=== PATIENT | female | born 1960 | race Caucasian/White ===

== ENCOUNTER 2016-09-28 11:23 | Emergency (ER) | payer OTHER ==
[~2016-09-28] VITALS: Ht 172.7 cm; Wt 50.0 kg
[~2016-09-28 11:23] MED LIST: BUPR300T PO; ENOX40P SQ; FLUO40CA PO; LORA1TAB PO; OXYC1SOL5 PO; SPIRCAP INH; Z.0.COMMODE-3:1; Z.0.WALKERFRONT
[2016-09-28 11:29] VITALS: BP 171/99; PULSE 102; RESP 24; TEMP 97.7; O2SAT 98
[2016-09-28 13:57] VITALS: O2SAT 100
[2016-09-28 14:03] VITALS: BP 170/74; PULSE 90; RESP 22; O2SAT 100
--- NOTE | 2016-09-28 14:04 | PD ---
HPI Chief Complaint: Chest Pain Time Seen by Provider: 14:04 Travel History International Travel<30 days: No Contact w/Intl Traveler<30days: No Traveled to known affect area: No History of Present Illness HPI 56-year-old female with PMH of COPD, depression, chronic back pain presents to ED for evaluation of "one week or 2-3 days" history of left-sided chest pain, shortness of breath, intermittent nausea, vomiting and diarrhea. Patient states that the chest pain is constant, worsened by lying on or touching her left breast. Patient also endorses increased urinary urgency,"dark urine" and right sided back pain. She states this back pain is different than her normal back pain of the midline. Denies fever, chills, sinus congestion, cough, sore throat , abdominal pain, weakness of the extremities. She states that she has been out of her Prozac and bupropion for "about a month." Patient is followed by Dr. Cote. [facility] Past Medical History Arthritis: Yes Cancer: No Cardiovascular Problems: No High Cholesterol: Yes Diminished Hearing: No Endocrine: No Genitourinary: Yes (OVERACTIVE BLADDER) Hepatitis: No Hiatal Hernia: No Immune Disorder: No Musculoskeletal: Yes (RIGHT HIP ARHTRITIS, LUMBAR DDD, ARTHRITIS BACK AND LEFT SHOULDER) Neurologic: No Psychiatric: Yes (CLINICAL DEPRESSION/ANXIETY) Reproductive: No Respiratory: Yes (COPD) Past Surgical History Abdominal Surgery: No AICD: No Body Medical Devices: NONE Cardiac Surgery: No Ear Surgery: No Endocrine Surgery: No Eye Surgery: No Genitourinary Surgery: No Gynecologic Surgery: Yes (TOTAL HYSTERECTOMY) Hysterectomy: Yes (1996) Joint Replacement: No Oral Surgery: No Pacemaker: No Thoracic Surgery: No Other Surgery: Yes Social History Alcohol Use: Yes (3-4 /WEEK) Tobacco Use: Yes (1 1/2 PPD X 30 YRS.) Substance Use: Yes (OCCASIONAL MARIJUNNA) Allergies-Medications (Allergen,Severity, Reaction): Coded Allergies: No Known Allergies (Verified , 01/20/16) Reported Meds & Prescriptions Reported Meds & Active Scripts Active Reported Hydrocodone-Acetaminophen 10-325 mg Tab 1 Tab PO Q4H PRN Spiriva Handihaler (Tiotropium Inh) 18 Mcg Cap 18 Mcg INH DAILY 1 capsule = 18 mcg Prozac (Fluoxetine HCl) 10 Mg Cap 10 Mg PO DAILY Bupropion HCl 75 Mg Tab 75 Mg PO BID Review of Systems Except as stated in HPI: all other systems reviewed are Neg Physical Exam Narrative GENERAL: Well-nourished, well-developed, tearful white female in no acute distress. SKIN: Warm and dry. 1-2 cm tender, mobile, rubbery mass in the upper lateral quadrant of the left breast. Large comedone of the right lower back. No signs of infection. EYES: No scleral icterus. No injection or drainage. PERRLA. EOMI. ENT: Pearly allen tympanic membranes bilaterally. Nasal mucosa is moist. Oropharynx without erythema, edema or exudate. NECK: Supple, trachea midline. No JVD or lymphadenopathy. CARDIOVASCULAR: Regular rate and rhythm without murmurs, gallops, or rubs. No carotid bruits. 2+ DP and radial pulses bilaterally. RESPIRATORY: Breath sounds clear and equal bilaterally. No accessory muscle use. GASTROINTESTINAL: Abdomen soft, non-tender, nondistended. + Bowel sounds MUSCULOSKELETAL: No cyanosis, or edema. Patient is ambulatory and moves the extremities spontaneously. BACK: Nontender without obvious deformity. No CVA tenderness. Data Data Last Documented VS Vital Signs Date Time Temp Pulse Resp B/P Pulse Ox O2 Delivery O2 Flow Rate FiO2 09/28/16 15:00 91 16 157/68 98 Room Air 09/28/16 11:29 97.7 Orders Electrocardiogram (09/28/16 ) Complete Blood Count With Diff (09/28/16 14:04) Comprehensive Metabolic Panel (09/28/16 14:04) D-Dimer (09/28/16 14:04) Act Partial Throm Time (Ptt) (09/28/16 14:04) Prothrombin Time / Inr (Pt) (09/28/16 14:04) Ckmb (Isoenzyme) Profile (09/28/16 14:04) Troponin I (09/28/16 14:04) Urinalysis - C+S If Indicated (09/28/16 14:04) Iv Access Insert/Monitor (09/28/16 14:04) Ecg Monitoring (09/28/16 14:04) Oximetry (09/28/16 14:04) Chest, Single Ap (09/28/16 14:04) Sodium Chloride 0.9% Flush (Ns Flush) (3/28/17 14:15) Lipase (09/28/16 14:04) Sodium Chlor 0.9% 1000 Ml Inj (Ns 1000 M (09/28/16 14:15) Ondansetron Inj (Zofran Inj) (09/28/16 14:15) B-Type Natriuretic Peptide (09/28/16 14:04) Ct Pulmonary Angiogram (09/28/16 15:23) Potassium Chloride (Kcl) (09/28/16 15:45) Acetamin-Hydrocod 325-10 Mg ([place] 10-32 (09/28/16 15:45) Iohexol 350 Inj (Omnipaque 350 Inj) (09/28/16 16:18) Labs Laboratory Tests Test 09/28/16 09/28/16 14:10 15:15 White Blood Count 13.1 TH/MM3 Red Blood Count 4.42 MIL/MM3 Hemoglobin 14.5 GM/DL Hematocrit 43.0 % Mean Corpuscular Volume 97.3 FL Mean Corpuscular Hemoglobin 32.8 PG Mean Corpuscular Hemoglobin 33.7 % Concent Red Cell Distribution Width 13.0 % Platelet Count 348 TH/MM3 Mean Platelet Volume 7.1 FL Neutrophils (%) (Auto) 78.1 % Lymphocytes (%) (Auto) 14.3 % Monocytes (%) (Auto) 6.0 % Eosinophils (%) (Auto) 0.9 % Basophils (%) (Auto) 0.7 % Neutrophils # (Auto) 10.2 TH/MM3 Lymphocytes # (Auto) 1.9 TH/MM3 Monocytes # (Auto) 0.8 TH/MM3 Eosinophils # (Auto) 0.1 TH/MM3 Basophils # (Auto) 0.1 TH/MM3 CBC Comment DIFF FINAL Differential Comment Prothrombin Time 10.4 SEC Prothromb Time International 0.9 RATIO Ratio Activated Partial 26.9 SEC Thromboplast Time D-Dimer Quantitative (PE/DVT) 1.68 MG/L FEU Sodium Level 139 MEQ/L Potassium Level 3.1 MEQ/L Chloride Level 107 MEQ/L Carbon Dioxide Level 20.6 MEQ/L Anion Gap 11 MEQ/L Blood Urea Nitrogen 3 MG/DL Creatinine 0.68 MG/DL Estimat Glomerular Filtration 90 ML/MIN Rate Random Glucose 107 MG/DL Calcium Level 9.1 MG/DL Total Bilirubin 0.6 MG/DL Aspartate Amino Transf 11 U/L (AST/SGOT) Alanine Aminotransferase 16 U/L (ALT/SGPT) Alkaline Phosphatase 88 U/L Total Creatine Kinase 37 U/L Troponin I LESS THAN 0.02 NG/ML B-Type Natriuretic Peptide 31 PG/ML Total Protein 7.7 GM/DL Albumin 3.8 GM/DL Lipase 233 U/L Urine Color LIGHT-YELLOW Urine Turbidity CLEAR Urine pH 6.0 Urine Specific [place] 1.004 Urine Protein NEG mg/dL Urine Glucose (UA) NEG mg/dL Urine Ketones TRACE mg/dL Urine Occult Blood NEG Urine Nitrite NEG Urine Bilirubin NEG Urine Urobilinogen LESS THAN 2.0 MG/DL Urine Leukocyte Esterase NEG Urine RBC 1 /hpf Urine WBC LESS THAN 1 /hpf Urine Squamous Epithelial 1 /hpf Cells Urine Bacteria RARE /hpf Microscopic Urinalysis Comment CULT NOT INDICATED MDM Medical Decision Making Medical Screen Exam Complete: Yes Emergency Medical Condition: Yes Differential Diagnosis COPD exacerbation versus anxiety versus chest pain versus ACS versus breast mass versus UTI versus gastroenteritis versus other Narrative Course 56-year-old female with PMH of COPD, depression, chronic back pain presents to ED for evaluation of "one week or 2-3 days" history of left-sided chest pain, shortness of breath, intermittent nausea, vomiting and diarrhea. Patient states that the chest pain is constant, worsened by lying on or touching her left breast. Patient also endorses increased urinary urgency,"dark urine" and right sided back pain. Denies fever, chills, sinus congestion, cough, sore throat, abdominal pain, weakness of the extremities. She states that she has been out of Prozac and bupropion for "about a month." PCP Dr. Cote. Vitals reviewed. O2 saturation 100% on room air. Physical exam reveals an anxious and tearful white female in no acute distress. There is a 1-2 cm mobile, tender, rubbery nodule in the upper lateral quadrant of the left breast, suspicious for lymph node. Regular rate and rhythm without appreciable thumb/R/G. Equal pulses in the extremities. Chest CTAB. Abdomen soft, nontender. No CVA tenderness. IV was established. Patient was administered a 1 L bolus of normal saline, 4 mg Zofran IV. CBC: WBC 13.1. CMP: K 3.1 BNP: 31 Lipase: 233 INR: 0.9 UA: No culture indicated Cardiac enzymes: CXR: No acute disease per radiology read. EKG: Rate 89, sinus rhythm. Normal intervals. Normal axis. No ST elevations or depressions. Reviewed by Dr. Brock. D-dimer: 1.68 CTA: No evidence of PE. [id number] pulmonary emphysema. Results per radiology read. Patient was administered 40 mEq potassium by mouth. Patient also requests a dose of her daily pain medication and was administered 10 mg Lortab by mouth. Patient states last mammogram was "a few years ago." Discussed the results of the evaluation with the patient. Patient is instructed to follow-up with Dr. Cote, schedule mammogram GR[facility]. She indicated understanding of instructions and agrees to the plan of care. She stable and discharged home. Diagnosis Primary Impression: Left breast mass Additional Impression: Hypokalemia Referrals: Austen Cote MD PhD Patient Instructions: Breast Mass (ED), General Instructions Additional Instructions: Rest, hydrate. Resume all at home medication as previously prescribed. Follow-up for your mammogram as discussed. Return to the ED for any urgent or emergent medical condition. Disposition: 01 DISCHARGE HOME Condition: Stable Nancy Munoz Sep 28, 2016 14:04
[2016-09-28] MEDS ORDERED: FLUO-1 PO (14:09)
[2016-09-28] MEDS ORDERED: HYDR-3583 PO (14:09)
[2016-09-28] MEDS ORDERED: BUPR75TA PO (14:09)
[2016-09-28] MEDS ORDERED: SPIRCAP INH (14:09)
[2016-09-28] MEDS ORDERED: SODIUM CHLORIDE 0.9% FLUSH 10 ML FLUSH IVF PRN (14:15)
[2016-09-28] MEDS ORDERED: SODIUM CHLOR 0.9% 1000 ML INJ 1,000 ML IV ONE (14:15)
[2016-09-28] MEDS ORDERED: ONDANSETRON HCL 4 MG/2 ML VIAL IV PUSH ONE (14:15)
[2016-09-28 14:30] LABS: AUTOMATED NEUTROPHIL # 10.2 TH/MM3 (1.8-7.7); BASOPHIL # 0.1 TH/MM3 (0-0.2); BASOPHIL % 0.7 % (0.0-2.0); EOSINOPHIL # 0.1 TH/MM3 (0-0.4); EOSINOPHIL % 0.9 % (0.0-4.0); HEMO FLAGS DIFF FINAL; LYMPH % 14.3 % (9.0-44.0); LYMPHOCYTE # 1.9 TH/MM3 (1.0-4.8); MEAN CELL VOLUME 97.3 FL (80.0-100.0); MEAN CORPUSCULAR HEMOGLOBIN 32.8 PG (27.0-34.0); MEAN CORPUSCULAR HGB CONC 33.7 % (32.0-36.0); NEUT % 78.1 % (16.0-70.0); PLATELET COUNT 348 TH/MM3 (150-450); RED BLOOD COUNT 4.42 MIL/MM3 (4.00-5.30); WHITE BLOOD COUNT 13.1 TH/MM3 (4.0-11.0)
--- NOTE | 2016-09-28 14:42 | RADRPT ---
EXAM DATE/TIME: 09/28/2016 14:23 [facility] COMPARISON: No previous studies available for comparison. INDICATIONS : Patient has had chest pain and been short of breath since this morning. MEDICAL HISTORY : None. SURGICAL HISTORY : None. ENCOUNTER: Initial ACUITY: 1 day PAIN SCORE: 8/10 LOCATION: Left chest FINDINGS: A single view of the chest demonstrates the lungs to be symmetrically aerated without evidence of mas s, infiltrate or effusion. The cardiomediastinal contours are unremarkable. Osseous structures are intact. CONCLUSION: No acute disease. Migel Naylor Jr., MD on September 28, 2016 at 14:40 Board Certified Radiologist. This report was verified electronically.
[2016-09-28 14:47] LABS: ALT (GPT) 16 U/L (10-53); ANION GAP 11 MEQ/L (5-15); AST (GOT) 11 U/L (15-37); BICARBONATE 20.6 MEQ/L (21.0-32.0); BLOOD UREA NITROGEN 3 MG/DL (7-18); CHLORIDE 107 MEQ/L (98-107); GLOMERULAR FILTRATION RATE 90 ML/MIN (>89); POTASSIUM 3.1 MEQ/L (3.5-5.1); SODIUM (NA) 139 MEQ/L (136-145)
[2016-09-28 14:50] LABS: ALKALINE PHOSPHATASE 88 U/L (45-117); TOTAL BILIRUBIN ADULT 0.6 MG/DL (0.2-1.0)
[2016-09-28 14:53] LABS: APTT (PATIENT) 26.9 SEC (24.3-30.1); INTERNATIONAL NORMALIZED RATIO 0.9 RATIO; PROTHROMBIN TIME - PATIENT 10.4 SEC (9.8-11.6)
[2016-09-28 14:54] LABS: CREATINE KINASE 37 U/L (26-192)
[2016-09-28 15:00] VITALS: BP 157/68; PULSE 91; RESP 16; O2SAT 98
[2016-09-28 15:34] LABS: BACTERIA, URINE RARE /hpf; BLOOD, URINE NEG (NEG); COMMENT (UR) CULT NOT INDICATED; CULTURE IF INDICATED CULT NOT INDICATED; GLUCOSE,URINE NEG (NEG); KETONE, URINE TRACE mg/dL (NEG); NITRITE,URINE NEG (NEG); SQUAMOUS EPITHELIAL CELL URINE 1 /hpf (0-5); URINE COLOR LIGHT-YELLOW (YELLW/STRAW)
[2016-09-28] MEDS ORDERED: POTASSIUM CHLORIDE 20 MEQ CONTROLLED RELEASE TAB PO ONE (15:45)
[2016-09-28] MEDS ORDERED: ACETAMINOPHEN/HYDROcodone 325 MG/10 MG TAB PO ONE (15:45)
[2016-09-28] MEDS ORDERED: IOHEXOL 350 MG/ML 10 ML VIAL (for RAD DIAG) IV ONE (16:18)
--- NOTE | 2016-09-28 16:32 | RADRPT ---
EXAM DATE/TIME: 09/28/2016 16:05 [facility] COMPARISON: No previous studies available for comparison. INDICATIONS : Chest pain with shortness of breath. IV CONTRAST: 50 cc Omnipaque 350 (iohexol) IV RADIATION DOSE: 21.48 CTDIvol (mGy) MEDICAL HISTORY : None SURGICAL HISTORY : Hysterectomy. ENCOUNTER: Initial ACUITY: 2 days PAIN SCALE: 4/10 LOCATION: Bilateral chest TECHNIQUE: Volumetric scanning of the chest was performed using a pulmonary embolism protocol MIP images were re constructed. Using automated exposure control and adjustment of the mA and/or kV according to patien t size, radiation dose was kept as low as reasonably achievable to obtain optimal diagnostic quality images. FINDINGS: PULMONARY ARTERIES: No filling defects are seen in the pulmonary arteries through the segmental level. LUNGS: [id number] paraseptal emphysematous changes. PLEURAE: There is no pleural thickening or pleural effusion. MEDIASTINUM: Scattered subcentimeter mediastinal lymph nodes likely reactive. There is good visualization of the g reat vessels of the middle mediastinum. No evidence of mediastinal or hilar adenopathy/mass. MUSCULOSKELETAL: Within normal limits for patient age. MISCELLANEOUS: The visualized upper abdominal organs demonstrate no acute abnormality. CONCLUSION: 1. No evidence of pulmonary embolus. 2. Mild to moderate pulmonary emphysema. Christ Hauser MD on September 28, 2016 at 16:26 Board Certified Radiologist. This report was verified electronically.
--- NOTE | 2016-09-28 22:38 | EKG ---
Date Performed: 09/28/2016 Time Performed: 12:26:34 PTAGE: 56 years EKG: Sinus rhythm NORMAL ECG PREVIOUS TRACING : 02/18/2000 12.33 Compared to prior tracing no significant change DOCTOR: Demetria Garcia Interpretating Date/Time 09/28/2016 22:37:27
== END 2016-09-28 17:12 | disposition home or self-care (01) ==
LOC: NEPE 11:23
DX: N63 Unspecified lump in breast (principal); E87.6 Hypokalemia; R06.02 Shortness of breath; F17.210 Nicotine dependence, cigarettes, uncomplicated; G89.29 Other chronic pain; M54.9 Dorsalgia, unspecified
CPT/HCPCS: 71010; 71275; 80053; 81001; 82550; 83690; 83880; 84484; 85025; 85379; 85610; 85730; 93005; 96374; 99285; J2405; J7030; Q9967